=== PATIENT | male | born 1960 | race Caucasian/White ===

== ENCOUNTER 2018-08-31 15:26 | Inpatient (IN) | payer MEDICARE, MEDICAID, OTHER | END 2018-09-02 13:00 | disposition home or self-care (01) | LOC: ER 15:26 → ED HOLD 17:48 → MED 3N 19:40 | DX: I21.A1 Myocardial infarction type 2 (principal); E43 Unspecified severe protein-calorie malnutrition; R55 Syncope and collapse; I50.9 Heart failure, unspecified; I11.0 Hypertensive heart disease with heart failure ==

== ENCOUNTER 2018-09-15 10:56 | Inpatient (IN) | payer MEDICARE, MEDICAID, OTHER | END 2018-09-18 14:45 | disposition short-term general hospital (02) | LOC: ER 10:56 → PCU 3S 09-16 08:00 → ED HOLD 14:31 | DX: T38.3X2A Poisoning by insulin and oral hypoglycemic [antidiabetic] drugs, intentional self-harm, initial encounter (principal); I13.0 Hypertensive heart and chronic kidney disease with heart failure and stage 1 through stage 4 chronic kidney disease, or unspecified chronic kidney disease; N18.4 Chronic kidney disease, stage 4 (severe); E11.65 Type 2 diabetes mellitus with hyperglycemia; F32.9 Major depressive disorder, single episode, unspecified ==